=== PATIENT | female | born 1980 | race Caucasian/White ===

== ENCOUNTER → 2019-02-09 | Outpatient (CLI) | payer OTHER ==
[~2019-02-09] MED LIST: AMIT50 PO; CEPH500 PO; CITA20 PO; DOXY100 PO; HYDACE5 PO; LEVSOD50 PO; PARO20 PO; SERT25 PO; SULTRIDS PO; Sprintec1 EACH PO
[2019-02-10 10:01] LABS: Candida species (DNA Probe) Negative (NEGATIVE); G. vaginalis (DNA Probe) Negative (NEGATIVE); T. vaginalis (DNA Probe) Negative (NEGATIVE)
[2019-02-13 16:06] LABS: HPV 16 Negative (Negative); HPV 18 Negative (Negative); HPV OTHER HR TYPES Negative (Negative)
== END | disposition home or self-care (01) ==
LOC: LAB 11:15 → LAB SHORT 11:15
PROVIDERS: Nurse Practitioner Family
DX: Z12.4 Encounter for screening for malignant neoplasm of cervix (principal); N89.8 Other specified noninflammatory disorders of vagina
CPT/HCPCS: 87480; 87510; 87624; 87660; G0145

== ENCOUNTER 2020-02-16 00:12 | Emergency (ER) | payer OTHER ==
[~2020-02-16] VITALS: Ht 152.4 cm; Wt 59.0 kg
[~2020-02-16 00:12] MED LIST changes: -AMIT50 PO; +AMIT75 PO; +LEVSOD100 PO; -LEVSOD50 PO
[2020-02-16] MEDS ORDERED: SERT100 PO (00:17)
== END 2020-02-16 01:06 | disposition home or self-care (01) ==
LOC: ER 00:12
DX: L25.9 Unspecified contact dermatitis, unspecified cause (principal); F41.9 Anxiety disorder, unspecified; E07.9 Disorder of thyroid, unspecified; F17.200 Nicotine dependence, unspecified, uncomplicated; Z79.899 Other long term (current) drug therapy
CPT/HCPCS: 96372; 99282-25; J3301